=== PATIENT | male | born 1955 | race Caucasian/White ===

== ENCOUNTER → 2019-12-01 06:45 | Day surgery (SDC) | payer MEDICAID ==
[2019-11-29 10:58] LABS: HEMATOCRIT 42.8 % (42.0-54.0); HEMOGLOBIN 14.1 g/dL (13.5-17.5); MCH 28.5 pg (26.0-34.0); MCHC 32.9 g/dL (31.0-37.0); MCV 86.5 fL (80.0-100.0); MEAN PLATELET VOLUME 8.9 fL (7.4-10.4); RBC 4.95 10x6/uL (4.20-6.10); WBC 5.5 10x3/uL (4.8-10.8)
[2019-11-29 11:09] LABS: APTT 27.8 SECONDS (22.8-39.4); INR 1.03 (0.85-1.17); PROTIME 13.4 SECONDS (11.6-15.0)
[2019-11-29 11:15] LABS: CALC OSMOLALITY 272 mosm/kg (275-300); CALCIUM 8.6 mg/dL (8.5-10.1); CARBON DIOXIDE 24.3 mmol/L (21.0-32.0); CHLORIDE - SERUM 103 mmol/L (98-107); GLUCOSE 91 mg/dL (74-106); POTASSIUM - SERUM 4.4 mmol/L (3.5-5.1); SODIUM 136 mmol/L (136-145); UREA NITROGEN 15 mg/dL (7-18); eGFR NON AFRICAN AMERICAN 80 mL/min (90-120)
[~2019-12-01] VITALS: Ht 185.4 cm; Wt 120.2 kg
[~2019-12-01 06:45] MED LIST: CALCIUM 600 +1 EAC3 PO; COZAAR50 MG PO; EPLERENONE50 MG PO; HYDROCODON-ACE1 EA10 PO; JANTOVEN6 MG PO; LOVENOX INJ100 MG/ML SC; LUMIGAN 0.01%2.5 ML EACH EYE; VERELAN120 MG PO; VITAMIN B-6250 MG PO; VITAMIN E600 UNIT PO; ZINC-220220 MG PO
[2019-12-01 07:49] VITALS: BP 112/71; Ht 185.4 cm; Wt 120.2 kg
--- NOTE | 2019-12-01 08:29 | NUR ---
0825 BLOOD DRAWN FOR A RECHECK K+ DUE TO PT TAKING HIS DIURETIC THIS AM
--- NOTE | 2019-12-01 13:49 | NUR ---
1320 IV REMOVED WITH [facility] INTACT. TAKEN DOWN VIA W/C AND ASSISTED TO CAR WITH SISTER. ADVISED TO CALL OR COME BACK IF ANY PROBLEMS.
--- NOTE | 2019-12-05 08:46 | OP ---
PATIENT NAME: ABDI SEPULVEDA MEDICAL RECORD: [id number] :57 LOCATION:[facility] ADMISSION DATE: SURGEON: LORENA POWELL MD DATE OF OPERATION: 12/01/2019 PREOPERATIVE DIAGNOSES: Impingement syndrome of the right shoulder with possible rotator cuff tear. 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 PROCEDURES: 1. Arthroscopic distal clavicle excision done through separate incision -- 1 cm. 2. Arthroscopic subacromial decompression with acromioplasty and bursectomy. SURGEON: Lorena Powell MD ANESTHESIA: General. INTRAOPERATIVE COMPLICATIONS: None. SUMMARY OF PATHOLOGIC FINDINGS: The patient had very mild tendinitis; however, he had a very profound downward sloping acromion with excoriation of the coracoacromial ligament, attritional changes were seen at the rotator cuff, but no full-thickness or partial thickness tearing was noted. 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 OPERATIVE SUMMARY IN DETAIL: After obtaining the appropriate preoperative orthopedic surgery consents as well as anesthetic consultation, evaluation and clearance, the patient was brought to the operating room and placed on the operating table in supine position. After general laryngeal mask airway was administered, the patient was placed in a left lateral decubitus position. All pressure points were well padded to include down peroneal pad as well as axillary roll. The patient was held firmly to the operating using the vacuum pack suction system. Right upper extremity and shoulder were then prepped and draped in routine sterile fashion. The arm was held in the Arthrex traction boom at 30 degrees of forward flexion, 30 degrees of abduction with 10 pounds of traction laterally. Arthroscopy was established in the glenohumeral joint from the posterior portal. Anterior portal was established in the anterior safe interval. Diagnostic arthroscopy showed the patient to have mild biceps tendinitis. No chondromalacia. No labral pathology and no rotator cuff tearing was seen from the articular aspect. Attention was then turned to the subacromial space. While in the subacromial space, accessory lateral portal was established through which the [place] tissue ablation system was utilized to denude the undersurface of the acromion of all soft tissue elements and release the coracoacromial ligament. A 5-0 barrel bur was used to perform a complete acromioplasty to the level of the AC joint. Then, through a separate anterior arthroscopic portal under arthroscopic visualization, the inferior osteophytes of the AC joint were removed followed by removal of the distal 1 cm of clavicle. Having completed this, residual bursa was taken down anteriorly, posteriorly, laterally and superiorly. At this point, arthroscopy portals were closed with 4-0 Prolene in OPERATIVE REPORT [id number] ABDI SEPULVEDA routine interrupted fashion. Sterile dressings were applied. The patient was awakened and taken to recovery room in stable condition. All final needle and sponge counts were correct. Please note that prior to making incision, the appropriate timeout was taken and agreed upon by all given the patient's unique identifiers. TRANSINT:[id number] Voice Confirmation ID: [id number] DOCUMENT ID: [id number] ANDRE DOBBS, LORENA CLAYTON at 0846 CC: [id number] DICTATION DATE: 12/01/19 1143 [facility]OL[facility] [employer]RSE PATROLLER: 12/01/19 1249 [facility] 12/01/19 [id number] [place] [address]
== END | disposition home or self-care (01) ==
LOC: D.OPS 06:45
PROVIDERS: Anesthesiology; ATTEND Orthopaedic Surgery
DX: M75.41 Impingement syndrome of right shoulder (principal); M13.811 Other specified arthritis, right shoulder

== ENCOUNTER → 2019-12-14 | Emergency (ER) | payer MEDICAID ==
[~2019-12-14] VITALS: Ht 185.4 cm; Wt 125.0 kg
[~2019-12-14] MED LIST changes: +LEVAQUIN750 MG PO; +ZOFRAN ODT4 MG/UDTAB PO
[2019-12-14 23:27] LABS: HEMATOCRIT 38.6 % (42.0-54.0); HEMOGLOBIN 12.9 g/dL (13.5-17.5); LYMPHOCYTES 4.2 % (15-50); MCH 28.7 pg (26.0-34.0); MCHC 33.4 g/dL (31.0-37.0); MCV 85.8 fL (80.0-100.0); MEAN PLATELET VOLUME 8.6 fL (7.4-10.4); PLATELET COUNT 239 10x3/uL (130-400); RDW 14.1 % (11.5-14.5); WBC 16.8 10x3/uL (4.8-10.8)
[2019-12-14 23:38] LABS: CALC OSMOLALITY 271 mosm/kg (275-300); CALCIUM 8.1 mg/dL (8.5-10.1); CARBON DIOXIDE 29.8 mmol/L (21.0-32.0); CHLORIDE - SERUM 99 mmol/L (98-107); GLUCOSE 109 mg/dL (74-106); POTASSIUM - SERUM 4.2 mmol/L (3.5-5.1); SODIUM 135 mmol/L (136-145); UREA NITROGEN 16 mg/dL (7-18); eGFR NON AFRICAN AMERICAN 80 mL/min (90-120)
[2019-12-14 23:43] LABS: ALBUMIN 2.9 g/dL (3.4-5.0); ALKALINE PHOSPHATASE 65 U/L (30-120); ALT (SGPT) 18 U/L (10-68); BILIRUBIN - TOTAL 0.53 mg/dL (0.2-1.3); PROTEIN - SERUM 6.6 g/dL (6.4-8.2)
[2019-12-14 23:44] LABS: BILIRUBIN NEGATIVE (NEGATIVE); KETONE NEGATIVE (NEGATIVE); NITRITE NEGATIVE (NEGATIVE); UROBILINOGEN NORMAL (NORMAL)
[2019-12-14 23:46] LABS: BACTERIA NONE SEEN /hpf (NONE SEEN); EPITHELIAL CELLS 0-5 /hpf (0-5); RED CELLS - URINE NONE SEEN /hpf (0-5)
== END | disposition home or self-care (01) ==
LOC: D.ER 21:49
PROVIDERS: Family Medicine
DX: N39.0 Urinary tract infection, site not specified (principal); I10 Essential (primary) hypertension; R42 Dizziness and giddiness